=== PATIENT | female | born 1955 | race African-American/Black ===

== ENCOUNTER 2017-05-07 04:23 | Inpatient (IN) | payer MEDICAID ==
[~2017-05-07] VITALS: Ht 160 cm; Wt 51.3 kg
[2017-05-07] MEDS ORDERED: DEXTROSE 50% WATER 50ML SYRINGE IV ONE ×2 (04:57→07:30)
[2017-05-07 06:03] LABS: CLARITY URINE CLEAR (CLEAR); COLOR URINE YELLOW (YELLOW); GLUCOSE URINE NEGATIVE (NEGATIVE); KETONES URINE TRACE (NEGATIVE); LEUKOCYTE ESTERASE URINE 1+ (NEGATIVE); NITRITE URINE NEGATIVE (NEGATIVE); OCCULT BLOOD URINE 1+ (NEGATIVE); PROTEIN URINE 1+ (NEGATIVE); SPECIFIC GRAVITY URINE 1.023 (1.005-1.030); UROBILINOGEN URINE 0.2 E.U./dL (0.2-1.0)
[2017-05-07] MEDS ORDERED: DEXT 10% WATER 1,000 ML IV ONE (06:03)
[2017-05-07 06:14] LABS: *AMPHETAMINES SCREEN URINE NEGATIVE (NEGATIVE); *BARBITURATES SCREEN URINE NEGATIVE (NEGATIVE); *BENZODIAZEPINES SCREEN URINE NEGATIVE (NEGATIVE); *COCAINE SCREEN URINE NEGATIVE (NEGATIVE); CANNABINOID URINE SCREEN NEGATIVE (NEGATIVE); METHADONE URINE SCREEN NEGATIVE (NEGATIVE); OPIATES URINE SCREEN NEGATIVE (NEGATIVE); PHENCYCLIDINE URINE SCREEN NEGATIVE (NEGATIVE)
[2017-05-07 06:20] LABS: HEMATOCRIT. 28.5 % (36.0-48.0); HEMOGLOBIN. 9.1 g/dL (12.0-16.0); MEAN CORPUSCULAR HEMOGLOBIN 28.9 pg (28.0-32.0); MEAN CORPUSCULAR VOLUME 90.8 fL (81.0-99.0); MEAN PLATELET VOLUME 7.5 fl (7.4-10.4); PLATELET 209 x1000/uL (130-400); RED BLOOD CELL COUNT 3.14 mill/uL (4.2-5.4); RED CELL DISTRIBUTION WIDTH 15.4 % (11.6-14.6)
[2017-05-07 06:26] LABS: CARBON DIOXIDE 26 mEq/L (21-32); CHLORIDE 108 mEq/L (98-107); ETHANOL BLOOD < 10 mg/dL; TROPONIN I < 0.02 ng/mL (0.00-0.04)
[2017-05-07] MEDS ORDERED: LEVOFLOXACIN 750MG PREMIX 150 ML IV ONE (06:45)
[2017-05-07 07:56] LABS: PLATELET ESTIMATE NORMAL
[2017-05-07] MEDS: SODIUM CHLORIDE 0.9% 1,000 ML IV SCH (09:59)
[2017-05-07] MEDS ORDERED: ACETAMINOPHEN 325MG TABLET PO PRN (10:00)
[2017-05-07] MEDS ORDERED: IPRATROPIUM/ALBUTEROL 0.5-3(2.5)MG/3ML NEB INH PRN (10:00)
[2017-05-07] MEDS ORDERED: ONDANSETRON HCL 4MG/2ML VIAL IV PRN (10:00)
[2017-05-07] MEDS ORDERED: CLONIDINE 0.1MG TABLET PO PRN (10:00)
[2017-05-07] MEDS ORDERED: MAGNESIUM/ALUMINUM HYDROXIDE/SIMETHICONE 30ML UDC PO PRN (10:00)
[2017-05-07 10:10] VITALS: BP 150/80
[2017-05-07] MEDS: DEXTROSE 50% WATER 50ML SYRINGE IV PRN ×2 (11:15→11:33)
[2017-05-07] MEDS ORDERED: DEXTROSE 50% WATER 50ML SYRINGE IV PRN (11:15)
[2017-05-07 12:00] VITALS: BP_SYST 124; BP_SYST 134; BP_DIAS 102; BP_DIAS 74
[2017-05-07] MEDS: INSULIN LISPRO 100 UNITS/ML SUBCUT SCH ×3 (12:20→21:00)
[2017-05-07] MEDS: BLOOD SUGAR DIAGNOSTIC STRIP TEST SCH ×3 (12:22→21:43)
[2017-05-07 12:28] LABS: HEMATOCRIT. 27.5 % (36.0-48.0); HEMOGLOBIN. 8.7 g/dL (12.0-16.0); MEAN CORPUSCULAR HEMOGLOBIN 28.8 pg (28.0-32.0); MEAN CORPUSCULAR VOLUME 90.6 fL (81.0-99.0); PLATELET 203 x1000/uL (130-400); RED BLOOD CELL COUNT 3.03 mill/uL (4.2-5.4); RED CELL DISTRIBUTION WIDTH 15.4 % (11.6-14.6)
[2017-05-07] MEDS: ASPIRIN 81MG EC TABLET PO SCH (13:19)
[2017-05-07] MEDS: ENOXAPARIN 40MG/0.4ML SYR SUBCUT SCH (13:19)
[2017-05-07 14:00] VITALS: BP 130/86
[2017-05-07 14:24] LABS: PLATELET ESTIMATE NORMAL
[2017-05-07 20:00] VITALS: BP 123/75
[2017-05-07 22:00] VITALS: BP 121/75
[2017-05-08] VITALS (12 sets, daily range): BP systolic 100–136; BP diastolic 59–85
[2017-05-08 00:02] LABS: CREATINE KINASE MB FRACTION 2.8 ng/mL (0.5-3.6)
[2017-05-08 05:46] LABS: HEMATOCRIT. 27.6 % (36.0-48.0); HEMOGLOBIN. 8.4 g/dL (12.0-16.0); MEAN CORPUSCULAR HEMOGLOBIN 28.1 pg (28.0-32.0); MEAN PLATELET VOLUME 7.9 fl (7.4-10.4); PLATELET 182 x1000/uL (130-400); RED CELL DISTRIBUTION WIDTH 15.5 % (11.6-14.6)
[2017-05-08] MEDS: BLOOD SUGAR DIAGNOSTIC STRIP TEST SCH ×4 (07:00→21:00)
[2017-05-08] MEDS: INSULIN LISPRO 100 UNITS/ML SUBCUT SCH ×4 (07:01→21:00)
[2017-05-08] MEDS: ASPIRIN 81MG EC TABLET PO SCH (08:22)
[2017-05-08 08:28] LABS: ATYPICAL LYMPHOCYTES 1; PLATELET ESTIMATE NORMAL
[2017-05-08] MEDS ORDERED: LEVOFLOXACIN 250MG PREMIX 50 ML IV SCH (09:00)
[2017-05-08] MEDS: ENOXAPARIN 40MG/0.4ML SYR SUBCUT SCH (09:57)
[2017-05-08] MEDS: SODIUM CHLORIDE 0.9% 1,000 ML IV SCH ×2 (12:30→19:19)
[2017-05-09] VITALS (11 sets, daily range): BP systolic 112–152; BP diastolic 30–96
[2017-05-09 05:23] LABS: IMMUNOGLOBULIN A 171 mg/dL (87-352); IMMUNOGLOBULIN G 1069 mg/dL (700-1600); IMMUNOGLOBULIN M 79 mg/dL (26-217)
[2017-05-09] MEDS: SODIUM CHLORIDE 0.9% 1,000 ML IV SCH (05:47)
[2017-05-09] MEDS: BLOOD SUGAR DIAGNOSTIC STRIP TEST SCH ×2 (06:42→11:50)
[2017-05-09] MEDS: INSULIN LISPRO 100 UNITS/ML SUBCUT SCH ×2 (07:20→12:20)
[2017-05-09] MEDS ORDERED: LEVOFLOXACIN 250MG PREMIX 50 ML IV SCH (09:00)
[2017-05-09 09:08] LABS: HEMATOCRIT. 26.5 % (36.0-48.0); HEMOGLOBIN. 8.5 g/dL (12.0-16.0); MEAN CORPUSCULAR HEMOGLOBIN 29.1 pg (28.0-32.0); MEAN PLATELET VOLUME 7.7 fl (7.4-10.4); PLATELET 167 x1000/uL (130-400); RED BLOOD CELL COUNT 2.91 mill/uL (4.2-5.4); RED CELL DISTRIBUTION WIDTH 15.5 % (11.6-14.6)
[2017-05-09] MEDS: ENOXAPARIN 40MG/0.4ML SYR SUBCUT SCH (10:18)
[2017-05-09] MEDS: ASPIRIN 81MG EC TABLET PO SCH (10:18)
[2017-05-09] MEDS ORDERED: ASPI-1158 PO (11:10)
[2017-05-09 13:17] LABS: PLATELET ESTIMATE NORMAL
== END 2017-05-09 17:12 | disposition home or self-care (01) | DRG 52 ==
LOC: ER 04:29 → 6WST 06:14 → ENRESERV 09:35 → 3WST 11:51
PROVIDERS: ADMIT Internal Medicine; ATTEND Internal Medicine
DX: G92 Toxic encephalopathy (principal); C91.10 Chronic lymphocytic leukemia of B-cell type not having achieved remission; E11.649 Type 2 diabetes mellitus with hypoglycemia without coma; I69.354 Hemiplegia and hemiparesis following cerebral infarction affecting left non-dominant side; D64.9 Anemia, unspecified; N39.0 Urinary tract infection, site not specified; R55 Syncope and collapse; E78.5 Hyperlipidemia, unspecified; I10 Essential (primary) hypertension
CPT/HCPCS: 36415; 70551; 71010; 76700; 80048; 80053; 80061; 80305; 81001; 82550; 82553; 82784; 82962; 83036; 83605; 83690; 83735; 83880; 84443; 84484; 85007; 85025; 85027; 87040; 87186; 93005; 93306; 93880; 93970; 96365; 97116; 97162; 97165; 99285; G0482; J1650; J1956; J7030